=== PATIENT | male | born 1970 | race African-American/Black ===

== ENCOUNTER 2016-12-26 03:08 | Emergency (ER) | payer MEDICAID ==
[~2016-12-26] VITALS: Ht 195.6 cm; Wt 95.0 kg
[~2016-12-26 03:08] MED LIST: aleeve; zithromax
[2016-12-26 06:26] VITALS: BP 151/56
[2016-12-26 09:15] LABS: BASOPHILS % 0.9 % (0.0-2.0); EOSINOPHILS % 5.2 % (0.0-5.0); HEMATOCRIT. 45.2 % (42.0-52.0); HEMOGLOBIN. 15.1 g/dL (14.0-18.0); LYMPHOCYTES % 28.4 % (20.0-50.0); MEAN CORPUSCULAR HEMOGLOBIN 28.1 pg (28.0-32.0); MEAN CORPUSCULAR VOLUME 84.2 fL (80.0-94.0); MONOCYTES % 14.3 % (2.0-8.0); NEUTROPHILS % 51.2 % (40.0-76.0); PLATELET 389 x1000/uL (130-400); RED BLOOD CELL COUNT 5.37 mill/uL (4.7-6.1); RED CELL DISTRIBUTION WIDTH 15.2 % (11.6-14.6)
[2016-12-26 09:22] LABS: CARBON DIOXIDE 33 mEq/L (21-32); CHLORIDE 102 mEq/L (98-107); ETHANOL BLOOD < 10 mg/dL
== END 2016-12-26 12:10 | disposition left against medical advice (07) ==
LOC: ER 06:51
DX: S70.01XA Contusion of right hip, initial encounter (principal); S70.211A Abrasion, right hip, initial encounter; V03.99XA Pedestrian with other conveyance injured in collision with car, pick-up truck or van, unspecified whether traffic or nontraffic accident, initial encounter; Y92.410 Unspecified street and highway as the place of occurrence of the external cause; F99 Mental disorder, not otherwise specified; Y93.89 Activity, other specified; F20.9 Schizophrenia, unspecified; F17.210 Nicotine dependence, cigarettes, uncomplicated; F16.10 Hallucinogen abuse, uncomplicated; Z98.890 Other specified postprocedural states
CPT/HCPCS: 36415; 73502; 80048; 80307; 80329; 85025; 99285; G0482

== ENCOUNTER 2017-09-07 01:40 | Emergency (ER) | payer MEDICAID ==
[~2017-09-07] VITALS: Ht 188 cm; Wt 79.0 kg
[2017-09-07] MEDS ORDERED: SODIUM CHLORIDE 0.9% 1,000 ML IV ONE (01:43)
[2017-09-07] MEDS ORDERED: CEFAZOLIN 1000MG PREMIX 50 ML IV ONE (01:45)
[2017-09-07] MEDS ORDERED: TETANUS, DIPHTHERIA, PERTUSSIS VAC/PF 0.5ML (>7YR OLD) IM ONE (01:45)
[2017-09-07] MEDS ORDERED: MORPHINE SULFATE 4 MG/ML CPJ (NOT FOR IM USE) IV ONE (01:54)
[2017-09-07 02:16] LABS: CHLORIDE 108 mEq/L (98-107)
[2017-09-07] MEDS ORDERED: MORPHINE SULFATE 10 MG/ML CPJ ONE (02:16)
[2017-09-07 02:17] LABS: HEMATOCRIT. 45.6 % (42.0-52.0); MEAN CORPUSCULAR HEMOGLOBIN 28.1 pg (28.0-32.0); MEAN CORPUSCULAR VOLUME 85.3 fL (80.0-94.0); PLATELET 404 x1000/uL (130-400); RED BLOOD CELL COUNT 5.35 mill/uL (4.7-6.1); RED CELL DISTRIBUTION WIDTH 15.7 % (11.6-14.6)
[2017-09-07 02:21] LABS: PARTIAL THROMBOPLASTIN TIME 26.2 sec (23.4-31.0); PROTHROMBIN TIME 10.7 sec (9.4-11.6)
[2017-09-07 02:45] VITALS: BP 124/76
[2017-09-07 06:47] LABS: PLATELET ESTIMATE NORMAL
== END 2017-09-07 02:59 | disposition short-term general hospital (02) ==
LOC: ER 01:40
DX: S21.119A Laceration without foreign body of unspecified front wall of thorax without penetration into thoracic cavity, initial encounter (principal); F20.9 Schizophrenia, unspecified; F16.10 Hallucinogen abuse, uncomplicated; F10.129 Alcohol abuse with intoxication, unspecified; W26.0XXA Contact with knife, initial encounter; Y93.89 Activity, other specified; Y92.89 Other specified places as the place of occurrence of the external cause; Y99.8 Other external cause status
CPT/HCPCS: 32551; 36415; 71045; 80053; 83690; 85025; 85610; 85730; 86850; 86900; 86901; 90471; 90715; 96365; 99291; J0690; J2270; J7030

== ENCOUNTER 2017-09-20 09:52 | Emergency (ER) | payer MEDICAID ==
[~2017-09-20] VITALS: Ht 182.9 cm; Wt 80.0 kg
[2017-09-20 10:17] VITALS: BP 129/107
[2017-09-20] MEDS ORDERED: SODIUM CHLORIDE 0.9% 1,000 ML IV ONE (10:57)
[2017-09-20] MEDS ORDERED: NITROGLYCERIN 0.4MG TABLET SL SL PRN (11:00)
[2017-09-20 11:19] LABS: BASOPHILS % 1.3 % (0.0-2.0); EOSINOPHILS % 6.2 % (0.0-5.0); HEMATOCRIT. 35.1 % (42.0-52.0); HEMOGLOBIN. 11.7 g/dL (14.0-18.0); LYMPHOCYTES % 24.4 % (20.0-50.0); MEAN CORPUSCULAR HEMOGLOBIN 28.3 pg (28.0-32.0); MEAN CORPUSCULAR VOLUME 84.6 fL (80.0-94.0); MEAN PLATELET VOLUME 6.4 fl (7.4-10.4); MONOCYTES % 10.9 % (2.0-8.0); NEUTROPHILS % 57.2 % (40.0-76.0); PLATELET 896 x1000/uL (130-400); RED BLOOD CELL COUNT 4.15 mill/uL (4.7-6.1); RED CELL DISTRIBUTION WIDTH 15.7 % (11.6-14.6)
[2017-09-20 11:22] LABS: CHLORIDE 109 mEq/L (98-107)
[2017-09-20 11:35] LABS: D-DIMER 7.15 mg/L FEU (<0.50); PARTIAL THROMBOPLASTIN TIME 27.3 sec (23.4-31.0); PROTHROMBIN TIME 10.9 sec (9.4-11.6)
== END 2017-09-20 11:28 | disposition left against medical advice (07) ==
LOC: ER 10:18
DX: J90 Pleural effusion, not elsewhere classified (principal); J98.11 Atelectasis; R53.1 Weakness; R42 Dizziness and giddiness; F19.10 Other psychoactive substance abuse, uncomplicated
CPT/HCPCS: 36415; 71045; 80053; 83690; 83880; 84484; 85025; 85379; 85610; 85730; 86850; 86900; 86901; 93005; 99285; G0482; J7030; Z7610

== ENCOUNTER 2018-01-24 13:56 | Emergency (ER) | payer MEDICAID ==
[~2018-01-24] VITALS: Ht 195.6 cm; Wt 60.0 kg
[2018-01-24] MEDS ORDERED: LORAZEPAM 1MG TABLET PO ONE (15:45)
[2018-01-24] MEDS ORDERED: IBUPROFEN 600MG TABLET PO ONE (17:00)
[2018-01-24 17:40] VITALS: BP 143/87
== END 2018-01-24 17:50 | disposition home or self-care (01) ==
LOC: ER 14:48
DX: S09.8XXA Other specified injuries of head, initial encounter (principal); R07.81 Pleurodynia; M79.1 Myalgia; R22.0 Localized swelling, mass and lump, head; F20.9 Schizophrenia, unspecified; Y04.0XXA Assault by unarmed brawl or fight, initial encounter; Y93.89 Activity, other specified; Y92.018 Other place in single-family (private) house as the place of occurrence of the external cause
CPT/HCPCS: 70450; 70486; 71111; 73030; 99284

== ENCOUNTER 2018-04-03 06:21 | Emergency (ER) | payer MEDICAID ==
[~2018-04-03] VITALS: Ht 175.3 cm; Wt 81.6 kg
[2018-04-03 08:30] VITALS: BP 119/87
== END 2018-04-03 08:34 | disposition home or self-care (01) ==
LOC: ER 06:21
DX: F10.229 Alcohol dependence with intoxication, unspecified (principal); F16.10 Hallucinogen abuse, uncomplicated; F20.9 Schizophrenia, unspecified; F17.200 Nicotine dependence, unspecified, uncomplicated; Y90.9 Presence of alcohol in blood, level not specified
CPT/HCPCS: 99283

== ENCOUNTER 2018-07-30 12:48 | Inpatient (IN) | payer MEDICAID ==
[~2018-07-30] VITALS: Ht 195.6 cm; Wt 90.7 kg
[2018-07-30] MEDS ORDERED: SODIUM CHLORIDE 0.9% 1,000 ML IV ONE (13:35)
[2018-07-30 15:26] LABS: BASOPHILS % 1.1 % (0.0-2.0); EOSINOPHILS % 2.3 % (0.0-5.0); HEMATOCRIT. 41.7 % (42.0-52.0); HEMOGLOBIN. 13.7 g/dL (14.0-18.0); LYMPHOCYTES % 16.4 % (20.0-50.0); MEAN CORPUSCULAR HEMOGLOBIN 27.8 pg (28.0-32.0); MEAN CORPUSCULAR VOLUME 84.9 fL (80.0-94.0); MONOCYTES % 12.5 % (2.0-8.0); NEUTROPHILS % 67.7 % (40.0-76.0); PLATELET 469 x1000/uL (130-400); RED BLOOD CELL COUNT 4.92 mill/uL (4.7-6.1); RED CELL DISTRIBUTION WIDTH 15.8 % (11.6-14.6)
[2018-07-30 15:31] LABS: CHLORIDE 103 mEq/L (98-107)
[2018-07-30 15:33] LABS: PARTIAL THROMBOPLASTIN TIME 24.8 sec (23.4-31.0); PROTHROMBIN TIME 10.3 sec (9.1-11.1)
[2018-07-30 15:35] LABS: ETHANOL BLOOD < 10 mg/dL
[2018-07-30 15:39] LABS: CREATINE KINASE 233 IU/L (39-308)
[2018-07-30 15:48] LABS: CLARITY URINE CLEAR (CLEAR); COLOR URINE YELLOW (YELLOW); KETONES URINE NEGATIVE (NEGATIVE); LEUKOCYTE ESTERASE URINE NEGATIVE (NEGATIVE); NITRITE URINE NEGATIVE (NEGATIVE); OCCULT BLOOD URINE NEGATIVE (NEGATIVE); PROTEIN URINE TRACE (NEGATIVE); UROBILINOGEN URINE 0.2 E.U./dL (0.2-1.0)
[2018-07-30 16:04] LABS: *BARBITURATES SCREEN URINE NEGATIVE (NEGATIVE); *BENZODIAZEPINES SCREEN URINE NEGATIVE (NEGATIVE); *COCAINE SCREEN URINE PRESUMTIVE POSITIVE (NEGATIVE)
[2018-07-30 16:05] LABS: *AMPHETAMINES SCREEN URINE NEGATIVE (NEGATIVE); CANNABINOID URINE SCREEN PRESUMTIVE POSITIVE (NEGATIVE); METHADONE URINE SCREEN NEGATIVE (NEGATIVE); OPIATES URINE SCREEN NEGATIVE (NEGATIVE); PHENCYCLIDINE URINE SCREEN PRESUMTIVE POSITIVE (NEGATIVE)
[2018-07-30] MEDS ORDERED: ACETAMINOPHEN 650MG SUPP PR PRN (21:00)
[2018-07-30] MEDS ORDERED: ACETAMINOPHEN 325MG TABLET PO PRN (21:00)
[2018-07-30] MEDS ORDERED: DIPHENHYDRAMINE 50MG/ML VIAL IV PRN (21:00)
[2018-07-30] MEDS ORDERED: HYDROCODONE/ACETAMINOPHEN 10/325MG TABLET PO PRN (21:00)
[2018-07-30] MEDS ORDERED: IPRATROPIUM/ALBUTEROL 0.5-3(2.5)MG/3ML NEB INH PRN (21:00)
[2018-07-30] MEDS ORDERED: CLONIDINE 0.1MG TABLET PO PRN (21:00)
[2018-07-30] MEDS ORDERED: ACETAMINOPHEN 650MG/20.3ML UDC GT PRN (21:00)
[2018-07-30] MEDS ORDERED: ONDANSETRON HCL 4MG/2ML INJ IV PRN (21:00)
[2018-07-30] MEDS ORDERED: HYDROCODONE/ACETAMINOPHEN 5/325MG TABLET PO PRN (21:00)
[2018-07-30] MEDS ORDERED: MAGNESIUM/ALUMINUM HYDROXIDE/SIMETHICONE 30ML UDC PO PRN (21:00)
[2018-07-30] MEDS ORDERED: ENOXAPARIN 40MG/0.4ML SYR SUBCUT SCH (21:00)
[2018-07-30] MEDS ORDERED: DOCUSATE SODIUM 100MG CAPSULE PO PRN (21:00)
[2018-07-30] MEDS ORDERED: GUAIFENESIN 200MG/10ML SUGAR FREE UDC PO PRN (21:00)
[2018-07-30 22:00] VITALS: BP 127/74
[2018-07-31] VITALS: BP 132/76
[2018-07-31] MEDS ORDERED: NA PHOS,M-B/NA PHOS,DI-BA ENEMA 118ML PR PRN (00:27)
[2018-07-31 01:51] LABS: CREATINE KINASE 194 IU/L (39-308)
[2018-07-31 01:53] LABS: CREATINE KINASE MB FRACTION 2.3 ng/mL (0.5-3.6)
[2018-07-31 04:00] VITALS: BP 135/79
[2018-07-31] MEDS: SODIUM CHLORIDE 0.9% INJ 3ML FLUSH IVF SCH ×3 (05:40→20:47)
[2018-07-31 07:15] LABS: HEMATOCRIT. 42.2 % (42.0-52.0); HEMOGLOBIN. 13.8 g/dL (14.0-18.0); MEAN CORPUSCULAR HEMOGLOBIN 27.8 pg (28.0-32.0); MEAN CORPUSCULAR VOLUME 84.9 fL (80.0-94.0); MEAN PLATELET VOLUME 7.1 fl (7.4-10.4); PLATELET 485 x1000/uL (130-400); RED BLOOD CELL COUNT 4.96 mill/uL (4.7-6.1); RED CELL DISTRIBUTION WIDTH 15.9 % (11.6-14.6)
[2018-07-31 07:25] LABS: CHLORIDE 108 mEq/L (98-107)
[2018-07-31 07:39] LABS: LDL CHOLESTEROL 95 mg/dL (5-100)
[2018-07-31 07:40] LABS: CREATINE KINASE 178 IU/L (39-308)
[2018-07-31 07:41] LABS: HDL CHOLESTEROL 56 mg/dL (40-59)
[2018-07-31 07:48] LABS: CREATINE KINASE MB FRACTION 2.3 ng/mL (0.5-3.6)
[2018-07-31 08:00] VITALS: BP 137/97
[2018-07-31] MEDS ORDERED: ENOXAPARIN 30MG/0.3ML SYR SUBCUT SCH (09:00)
[2018-07-31 10:30] LABS: PLATELET ESTIMATE INCREASED
[2018-07-31 11:10] LABS: T4 FREE 0.9 ng/dL (0.76-1.46)
[2018-07-31 12:00] VITALS: BP 130/71
[2018-07-31] MEDS ORDERED: REGADENOSON 0.4 MG/5 ML IV NR (19:45)
[2018-07-31 20:00] VITALS: BP 160/93
[2018-07-31] MEDS ORDERED: DEXTROSE 50% WATER 50ML SYRINGE IV PRN (21:30)
[2018-08-01] VITALS: BP 135/75
[2018-08-01 01:25] LABS: CREATINE KINASE 162 IU/L (39-308)
[2018-08-01 01:26] LABS: CREATINE KINASE MB FRACTION 1.5 ng/mL (0.5-3.6)
[2018-08-01 04:00] VITALS: BP_SYST 128; BP_SYST 129; BP_SYST 135; BP_DIAS 75; BP_DIAS 81; BP_DIAS 83
[2018-08-01] MEDS: SODIUM CHLORIDE 0.9% INJ 3ML FLUSH IVF SCH (06:00)
[2018-08-01] MEDS ORDERED: BLOOD SUGAR DIAGNOSTIC STRIP TEST SCH (07:40)
[2018-08-01 08:00] VITALS: BP_SYST 116; BP_SYST 126; BP_SYST 140; BP_DIAS 72; BP_DIAS 82; BP_DIAS 83
[2018-08-01] MEDS ORDERED: INSULIN LISPRO 100 UNITS/ML SUBCUT SCH (08:10)
[2018-08-01] MEDS ORDERED: ENOXAPARIN 40MG/0.4ML SYR SUBCUT SCH (09:00)
[2018-08-01 10:18] LABS: CREATINE KINASE 235 IU/L (39-308)
[2018-08-01 10:19] LABS: CREATINE KINASE MB FRACTION 1.8 ng/mL (0.5-3.6)
[2018-08-01 10:22] LABS: HEMATOCRIT. 43.7 % (42.0-52.0); HEMOGLOBIN. 14.1 g/dL (14.0-18.0); MEAN CORPUSCULAR HEMOGLOBIN 27.6 pg (28.0-32.0); MEAN CORPUSCULAR VOLUME 85.6 fL (80.0-94.0); MEAN PLATELET VOLUME 7.4 fl (7.4-10.4); PLATELET 498 x1000/uL (130-400); RED CELL DISTRIBUTION WIDTH 15.7 % (11.6-14.6)
[2018-08-01 10:23] LABS: CHLORIDE 102 mEq/L (98-107)
[2018-08-01] MEDS ORDERED: METF-414 MT (11:58)
[2018-08-01] MEDS ORDERED: LEVE1000 MT (11:58)
[2018-08-01 12:02] VITALS: BP 139/91
[2018-08-01 12:35] VITALS: BP 139/91
[2018-08-01 14:47] LABS: PLATELET ESTIMATE INCREASED
== END 2018-08-01 13:38 | disposition home or self-care (01) | DRG 48 ==
LOC: ER 12:48 → 7WST 16:44 → EDBEDREQ 16:46 → EDBEDREQTM 16:46 → ENRESERV 18:34
PROVIDERS: ADMIT Family Medicine; ATTEND Family Medicine
DX: G90.8 Other disorders of autonomic nervous system (principal); E11.9 Type 2 diabetes mellitus without complications; F14.10 Cocaine abuse, uncomplicated; F12.10 Cannabis abuse, uncomplicated; I10 Essential (primary) hypertension; F19.10 Other psychoactive substance abuse, uncomplicated; F17.210 Nicotine dependence, cigarettes, uncomplicated; Z82.49 Family history of ischemic heart disease and other diseases of the circulatory system; Z83.3 Family history of diabetes mellitus; Z71.51 Drug abuse counseling and surveillance of drug abuser
CPT/HCPCS: 36415; 71045; 80061; 80305; 82550; 82553; 82962; 83036; 83735; 83880; 84439; 84443; 84484; 85379; 93005; 93306; 93970; 96360; 96372; 99285; A9500; J1650; J7030

== ENCOUNTER 2018-08-11 15:03 | Emergency (ER) | payer MEDICAID ==
[~2018-08-11] VITALS: Ht 188 cm; Wt 89.0 kg
[2018-08-11] MEDS ORDERED: ASPIRIN 325MG EC TABLET PO ONE (18:15)
[2018-08-11 18:46] LABS: BASOPHILS % 0.8 % (0.0-2.0); EOSINOPHILS % 2.8 % (0.0-5.0); HEMOGLOBIN. 14.7 g/dL (14.0-18.0); MEAN CORPUSCULAR HEMOGLOBIN 27.7 pg (28.0-32.0); MEAN PLATELET VOLUME 7.1 fl (7.4-10.4); MONOCYTES % 9.6 % (2.0-8.0); NEUTROPHILS % 70.8 % (40.0-76.0); PLATELET 511 x1000/uL (130-400); RED BLOOD CELL COUNT 5.29 mill/uL (4.7-6.1); RED CELL DISTRIBUTION WIDTH 16.1 % (11.6-14.6)
[2018-08-11 18:53] LABS: CHLORIDE 105 mEq/L (98-107)
[2018-08-11 18:57] LABS: ETHANOL BLOOD < 10 mg/dL
[2018-08-11 19:39] VITALS: BP 123/68
== END 2018-08-11 20:19 | disposition home or self-care (01) ==
LOC: ER 15:03
DX: R07.89 Other chest pain (principal); N28.9 Disorder of kidney and ureter, unspecified; F16.10 Hallucinogen abuse, uncomplicated; R05 Cough; R06.02 Shortness of breath; I10 Essential (primary) hypertension; E11.9 Type 2 diabetes mellitus without complications; F17.200 Nicotine dependence, unspecified, uncomplicated
CPT/HCPCS: 36415; 71045; 80320; 83880; 84484; 85379; 93005; 99284; G0480

== ENCOUNTER 2019-01-06 03:17 | Emergency (ER) | payer MEDICAID ==
[~2019-01-06] VITALS: Ht 190.5 cm; Wt 98.0 kg
[2019-01-06 05:54] VITALS: BP 110/60
== END 2019-01-06 07:27 | disposition home or self-care (01) ==
LOC: ER 03:17
DX: F19.10 Other psychoactive substance abuse, uncomplicated (principal); F10.129 Alcohol abuse with intoxication, unspecified; F14.10 Cocaine abuse, uncomplicated; R53.1 Weakness; R11.0 Nausea; E11.9 Type 2 diabetes mellitus without complications; I10 Essential (primary) hypertension; F17.210 Nicotine dependence, cigarettes, uncomplicated; Y90.9 Presence of alcohol in blood, level not specified
CPT/HCPCS: 99283; 99406

== ENCOUNTER 2019-04-22 12:52 | Emergency (ER) | payer MEDICAID ==
[~2019-04-22] VITALS: Ht 195.6 cm; Wt 82.0 kg
[2019-04-22 14:51] LABS: EOSINOPHILS % 1.4 % (0.0-5.0); HEMATOCRIT. 44.3 % (42.0-52.0); HEMOGLOBIN. 14.7 g/dL (14.0-18.0); LYMPHOCYTES % 19.3 % (20.0-50.0); MEAN CORPUSCULAR HEMOGLOBIN 27.7 pg (28.0-32.0); MEAN CORPUSCULAR VOLUME 83.4 fL (80.0-94.0); MEAN PLATELET VOLUME 6.4 fl (7.4-10.4); MONOCYTES % 11.7 % (2.0-8.0); NEUTROPHILS % 66.6 % (40.0-76.0); PLATELET 660 x1000/uL (130-400); RED BLOOD CELL COUNT 5.31 mill/uL (4.7-6.1); RED CELL DISTRIBUTION WIDTH 15.2 % (11.6-14.6)
[2019-04-22 14:55] LABS: CHLORIDE 101 mEq/L (98-107)
[2019-04-22 15:02] LABS: INR 1.1; PROTHROMBIN TIME 11.4 sec (9.6-11.0)
[2019-04-22] MEDS ORDERED: DEXAMETHASONE 4MG/ML 1ML VIAL IV ONE (17:00)
[2019-04-22] MEDS ORDERED: PENICILLIN G BENZATHINE 1,200,000 UNITS/2ML SYR IM ONE (17:00)
[2019-04-22] MEDS ORDERED: KETOROLAC 15MG/ML VIAL IV ONE (17:00)
[2019-04-22 18:07] VITALS: BP 122/81
== END 2019-04-22 18:07 | disposition home or self-care (01) ==
LOC: ER 12:52
DX: J03.80 Acute tonsillitis due to other specified organisms (principal); R22.1 Localized swelling, mass and lump, neck; F12.10 Cannabis abuse, uncomplicated; F14.10 Cocaine abuse, uncomplicated; F10.20 Alcohol dependence, uncomplicated; Y90.9 Presence of alcohol in blood, level not specified
CPT/HCPCS: 36415; 70491; 80053; 85025; 85610; 96372; 96374; 96375; 99284; J0561; J1100; J1885

== ENCOUNTER 2022-03-19 14:05 | Emergency (ER) | payer MEDICAID ==
[~2022-03-19] VITALS: Ht 195.6 cm; Wt 92.0 kg
[2022-03-19] MEDS ORDERED: IBUPROFEN 600MG TABLET PO ONE (18:15)
[2022-03-19] MEDS ORDERED: ACET-2708 MT (18:23)
[2022-03-19 18:28] VITALS: BP 129/87
== END 2022-03-19 18:38 | disposition home or self-care (01) ==
LOC: ER 14:17
DX: S09.8XXA Other specified injuries of head, initial encounter (principal); X58.XXXA Exposure to other specified factors, initial encounter; Y93.89 Activity, other specified; Y92.89 Other specified places as the place of occurrence of the external cause; Y99.8 Other external cause status; F10.229 Alcohol dependence with intoxication, unspecified; F14.10 Cocaine abuse, uncomplicated; F12.10 Cannabis abuse, uncomplicated; Y90.0 Blood alcohol level of less than 20 mg/100 ml
CPT/HCPCS: 99284

== ENCOUNTER 2024-07-15 17:51 | Emergency (ER) | payer MEDICAID ==
[~2024-07-15] VITALS: Ht 195.6 cm; Wt 84.0 kg
[~2024-07-15 17:51] MED LIST changes: +ACET-2708 MT
[2024-07-15 17:52] VITALS: BP 127/90; RESP 16; TEMP 36.8; O2SAT 97
[2024-07-15 17:53] VITALS: PULSE 77; O2SAT 100
[2024-07-15 20:39] LABS: BASOPHILS % 0.8 % (0.0-2.0); EOSINOPHILS % 1.3 % (0.0-5.0); HEMATOCRIT. 42.2 % (42.0-52.0); HEMOGLOBIN. 14.2 g/dL (14.0-18.0); LYMPHOCYTES % 23.6 % (20.0-50.0); MEAN CORPUSCULAR HEMOGLOBIN 29.3 pg (28.0-32.0); MEAN CORPUSCULAR HGB CONC 33.6 g/dL (31.0-37.0); MEAN CORPUSCULAR VOLUME 87.1 fL (80.0-94.0); MEAN PLATELET VOLUME 7.4 fl (7.4-10.4); MONOCYTES % 6.5 % (2.0-8.0); NEUTROPHILS % 67.8 % (40.0-76.0); PLATELET 414 x1000/uL (130-400); RED BLOOD CELL COUNT 4.84 mill/uL (4.7-6.1); RED CELL DISTRIBUTION WIDTH 14.9 % (11.6-14.6); WHITE BLOOD COUNT 7.6 x1000/uL (4.5-11.0)
[2024-07-15 20:45] LABS: CHLORIDE 106 mEq/L (98-107); POTASSIUM 4.4 mEq/L (3.5-5.1); SODIUM 141 mEq/L (136-145)
[2024-07-15 20:46] LABS: CALCIUM 9.6 mg/dL (8.7-10.4); CARBON DIOXIDE 30 mEq/L (21-32)
[2024-07-15 20:51] LABS: CREATININE 0.8 mg/dL (0.6-1.3); GLUCOSE 102 mg/dL (70-105); UREA NITROGEN BLOOD 10 mg/dL (9-23)
[2024-07-15 20:52] LABS: TROPONIN I HIGH SENSITIVITY < 4 ng/L (3.0-53)
[2024-07-15] MEDS ORDERED: LIDO1ADH7 TP (21:56)
== END 2024-07-15 23:20 | disposition home or self-care (01) ==
LOC: ER 17:51
DX: R07.89 Other chest pain (principal); F12.90 Cannabis use, unspecified, uncomplicated; F14.90 Cocaine use, unspecified, uncomplicated; Z98.890 Other specified postprocedural states
CPT/HCPCS: 36415; 71045; 80048; 84484; 85025; 93005; 99285